=== PATIENT | male | born 1985 | race Caucasian/White ===

== ENCOUNTER 2017-11-03 17:18 | Emergency (ER) | payer OTHER ==
[2017-11-03] MEDS: LIDOCAINE 1% MDV 20ML VIAL IM (19:58)
== END 2017-11-03 20:59 | disposition home or self-care (01) ==
LOC: M ED 17:18
DX: S61.211A Laceration without foreign body of left index finger without damage to nail, initial encounter (principal); W26.0XXA Contact with knife, initial encounter; Y92.59 Other trade areas as the place of occurrence of the external cause; Y99.0 Civilian activity done for income or pay; F17.210 Nicotine dependence, cigarettes, uncomplicated
CPT/HCPCS: 12001

== ENCOUNTER 2023-11-24 14:41 | Emergency (ER) | payer OTHER, SELFPAY ==
[~2023-11-24] VITALS: Ht 190.5 cm; Wt 91.0 kg
[2023-11-24 18:55] LABS: BASO # 0.1 10^3/uL (0.0-0.2); BASO % 0.9 % (0.0-1.0); EOS # 0.3 10^3/uL (0.0-0.5); EOS % 2.8 % (0.0-3.0); HEMATOCRIT 39.9 % (42.0-52.0); HEMOGLOBIN 13.1 g/dl (13.5-17.5); LYMPH # 3.2 10^3/uL (1.5-5.0); LYMPH % 33.9 % (24.0-44.0); MEAN CORPUSCULAR HEMOGLOBIN 27.5 pg (27.0-33.0); MEAN CORPUSCULAR HGB CONC 32.8 g/dl (32.0-36.5); MEAN CORPUSCULAR VOLUME 83.8 fl (80.0-96.0); MONO # 0.6 10^3/uL (0.0-0.8); MONO % 6.5 % (2.0-8.0); NEUTROPHILS # 5.2 10^3/uL (1.5-8.5); NEUTROPHILS % 55.6 % (36.0-66.0); PLATELET COUNT, AUTOMATED 285 10^3/uL (150-450); RED BLOOD COUNT 4.76 10^6/uL (4.30-6.10); WHITE BLOOD COUNT 9.4 10^3/uL (4.0-10.0)
[2023-11-24 19:02] LABS: ERYTHROCYTE SEDIMENTATION RATE 5 mm/hr (0-15)
[2023-11-24 19:20] LABS: C REACTIVE PROTEIN QUANTITATIV < 0.40 MG/DL (<1.0); CK-MB VALUE MASS 2.5 NG/ML (<3.6)
[2023-11-24 19:22] LABS: BLOOD UREA NITROGEN 10 MG/DL (9-23); CALCIUM LEVEL 9.6 MG/DL (8.5-10.1); CARBON DIOXIDE LEVEL 27 MMOL/L (20-31); CHLORIDE LEVEL 109 MMOL/L (98-107); CREATININE FOR GFR 0.97 MG/DL (0.70-1.30); GLOMERULAR FILTRATION RATE > 60.0 (>60); GLUCOSE, FASTING 79 MG/DL (60-100); POTASSIUM SERUM 4.9 MMOL/L (3.5-5.1); SODIUM LEVEL 142 MMOL/L (136-145)
[2023-11-24 19:23] LABS: CPK CREATINE PHOSPHOKINASE 449 U/L (46-171); MB/CK RELATIVE INDEX 0.55 (< OR =4)
[2023-11-24] MEDS: ACETAMINOPHEN 325 MG TAB PO ONE (22:25)
[2023-11-24] MEDS: NS 1,000 ML IV ONE (22:27)
[2023-11-24 23:04] LABS: MAGNESIUM LEVEL 2.2 MG/DL (1.8-2.4)
[2023-11-24 23:09] LABS: FREE T4 0.92 NG/DL (0.89-1.76); THYROID STIMULATING HORMONE 0.708 uIU/ML (0.55-4.78)
[2023-11-24 23:15] LABS: CK-MB VALUE MASS 3.2 NG/ML (<3.6)
[2023-11-24 23:16] LABS: ALBUMIN 4.4 G/DL (3.2-5.2); BILIRUBIN,DIRECT 0.6 MG/DL (<0.4); BILIRUBIN,TOTAL 1.6 MG/DL (0.3-1.2); MB/CK RELATIVE INDEX 0.69 (< OR =4); TOTAL PROTEIN 7.1 G/DL (5.7-8.2)
[2023-11-25] MEDS ORDERED: NAPR-837 PO (00:28)
[2023-11-25 01:03] VITALS: BP 102/63; TEMP 97.9; O2SAT 100
[2023-11-25] MEDS: KETOROLAC 30 MG/ML 1ML VIAL IV ONE (01:04)
== END 2023-11-25 01:10 | disposition home or self-care (01) ==
LOC: M ED 14:41
DX: M54.50 Low back pain, unspecified (principal); M51.37 Other intervertebral disc degeneration, lumbosacral region; R00.1 Bradycardia, unspecified; Z87.891 Personal history of nicotine dependence; Z79.1 Long term (current) use of non-steroidal anti-inflammatories (NSAID)
CPT/HCPCS: 72072; 72110; 80048; 80076; 82550; 82553; 83690; 83735; 84439; 84443; 84484; 85025; 85652; 86140; 86618; 93005; 93041; 96374; 99284; J1885

== ENCOUNTER → 2024-08-18 | Outpatient (CLI) | payer SELFPAY ==
[~2024-08-18] MED LIST: NAPR-837 PO
== END ==
LOC: M WUC 08:00
PROVIDERS: ATTEND Physician Assistant
DX: S83.421A Sprain of lateral collateral ligament of right knee, initial encounter (principal)

== ENCOUNTER 2025-03-24 15:21 | Emergency (ER) | payer SELFPAY ==
[~2025-03-24] VITALS: Ht 190.5 cm; Wt 99.7 kg
[2025-03-24] MEDS: KETOROLAC 60 MG/2 ML VIAL IM ONE (17:34)
[2025-03-24 17:46] VITALS: TEMP 97.8
[2025-03-24 19:18] VITALS: BP 122/81; O2SAT 98
== END 2025-03-24 19:19 | disposition home or self-care (01) ==
LOC: M ED 15:21
DX: S76.311A Strain of muscle, fascia and tendon of the posterior muscle group at thigh level, right thigh, initial encounter (principal); Y92.9 Unspecified place or not applicable; Y93.02 Activity, running; Y99.9 Unspecified external cause status
CPT/HCPCS: 73552; 96372; 99283; J1885